=== PATIENT | female | born 1975 | race Caucasian/White ===

== ENCOUNTER 2017-10-18 11:55 | Emergency (ER) | payer BC, OTHER ==
[2017-10-18] MEDS ORDERED: METOCLOPRAMIDE 10 MG/2 ML VIAL IVP ONE (12:30)
[2017-10-18] MEDS ORDERED: methylPREDNISolone SOD SUCC 125 MG/2 ML VIAL IVP ONE (12:30)
[2017-10-18] MEDS ORDERED: KETOROLAC 30 MG/1 ML SDV IVP ONE (12:31)
--- NOTE | 2017-10-18 12:34 | EDPHY ---
H & P Stated Complaint: CP SOB Time Seen by Provider: 10/18/17 12:22 - Personal History LMP (Females 10-55): 15-21 Days Ago Current Tetanus/Diphtheria Vaccine: Unsure Current Tetanus Diphtheria and Acellular Pertussis (TDAP): Unsure - Medical/Surgical History Hx Asthma: No Hx Chronic Respiratory Disease: No Hx Diabetes: No Hx Cardiac Disease: No Hx Renal Disease: No Hx Cirrhosis: No Hx Alcoholism: No Hx HIV/AIDS: No Hx Splenectomy or Spleen Trauma: No Other PMH: occular migaines, ovarian cyst, - Social History Smoking Status: Never smoked Constitutional: Initial Vital Signs Temperature (C) 37.6 C 10/18/17 12:09 Heart Rate 88 10/18/17 12:09 Respiratory Rate 16 10/18/17 12:09 Blood Pressure 100/87 H 10/18/17 12:09 O2 Sat (%) 98 10/18/17 12:09 O2 Delivery Mode Room Air Allergies/Adverse Reactions: morphine Allergy (Verified 10/18/17 12:09) Penicillins Allergy (Verified 10/18/17 12:09) Sulfa (Sulfonamide Antibiotics) Allergy (Verified 10/18/17 12:09) Home Medications: Medication Instructions Recorded Zoloft 25mg (*) 10/18/17 Medical Decision Making ED Course/Re-evaluation: CHIEF COMPLAINT: Headache HISTORY OF PRESENT ILLNESS: 42-year-old female who has a history of ocular migraines. She has had some visual disturbances in the left eye followed by some numbness and tingling in the left upper extremity. She had similar symptoms in the past. She also has a significant headache with some nausea at this time. She denies any recent trauma. She denies any fevers or chills or any systemic illness. She denies any nausea vomiting. She says this feels exactly like her prior ocular migraines. REVIEW OF SYSTEMS: A 10 point review of systems was performed and is negative with the exception of the elements mentioned in the history of present illness. PHYSICAL EXAM: HR, BP, O2 Sat, RR. Temp noted General Appearance: Alert, well hydrated, appropriate, and non-toxic appearing. Head: Atraumatic without scalp tenderness or obvious injury Eyes: Pupils equal, round, reactive to light and accommodation, EOMI, no trauma , no injection. Ears: Clear bilaterally, no perforation, normal landmarks Nose: Atraumatic, no rhinorrhea, clear. Throat: There is no erythema or exudates, no lesions, normal tonsils, mucus membranes moist. Neck: Supple, 2+ carotid upstroke, nontender, no lymphadenopathy. Respiratory: No retractions, no distress, no wheezes, and no accessory muscle use. Lungs are clear to auscultation bilaterally. Cardiovascular: Regular rate and rhythm, no murmurs, rubs, or gallops. Bilateral carotid, radial, dorsalis pedis, and posterior tibial pulses intact. Good capillary refill all extremities. Gastrointestinal: Abdomen is soft, nontender, non-distended, no masses, no rebound, no guarding, no peritoneal signs. Musculoskeletal: Normal active ROM of all extremities, atraumatic. Neurological: Alert, appropriate, and interactive. The patient has normal DTRs and non-focal cranial nerves, motor, sensory, and cerebellar exam. Skin: No rashes, good turgor, no nodules on palpation. Past medical history: Ocular migraines Past surgical history: Noncontributory Family history: Noncontributory Social history: Uses alcohol probably on the heavier side, denies tobacco or drug use, employed, single. DIAGNOSTICS/PROCEDURES/CRITICAL CARE TIME: Not warranted DIFFERENTIAL DIAGNOSIS: The differential diagnosis for the patient's headache included but was not limited to ocular migraine, subarachnoid hemorrhage, migraine headache, tension headache and infectious causes such as meningitis, pharyngitis and sinusitis. MEDICAL DECISION MAKING: This patient has a fairly classic ocular migraine with some atypical symptoms are left upper extremity which she has had in the past. I am treating her with Reglan 10 mg, Solu-Medrol 125 mg, ketorolac 30 mg , and 25 mg of Benadryl. 1328: Reassessed patient, her headache has completely resolved after medication. Patient's symptoms are consistent with an ocular migraine. I have provided her a neurologist follow up. Return precautions provided; patient is comfortable with this plan. - Data Points Medications Given: Discontinued Medications Diphenhydramine HCl (Benadryl Injection) 25 mg IVP EDNOW ONE Stop: 10/18/17 12:32 Last Admin: 10/18/17 12:43 Dose: 25 mg Sodium Chloride (Ns) 1,000 mls @ 0 mls/hr IV ONCE ONE PRN Reason: Wide Open Stop: 10/18/17 12:43 Last Admin: 10/18/17 12:43 Dose: 1,000 mls Ketorolac Tromethamine (Toradol) 30 mg IVP EDNOW ONE Stop: 10/18/17 12:32 Last Admin: 10/18/17 12:43 Dose: 30 mg Methylprednisolone Sodium Succinate (Solu-Medrol) 125 mg IVP EDNOW ONE Stop: 10/18/17 12:31 Last Admin: 10/18/17 12:43 Dose: 125 mg Metoclopramide HCl (Reglan Injection) 10 mg IVP EDNOW ONE Stop: 10/18/17 12:31 Last Admin: 10/18/17 12:43 Dose: 10 mg Departure - Departure Disposition: Home, Routine, Self-Care Clinical Impression: Ocular migraine Condition: Good Instructions: Migraine Headache (ED), Acute Headache (ED), Ocular Migraine (ED) Additional Instructions: 1. Follow-up with your primary care physician within 72 hours. 2. Return to the emergency department immediately for recurrence of headache, nausea, vomiting, numbness, weakness, neck pain, fever or other concerns. 3. Use Tylenol and/or ibuprofen as directed. Referrals: Venus Salamanca MD [Primary Care Provider] - As per Instructions Chidi Kim DO [Medical Doctor] - As per Instructions
[2017-10-18] MEDS ORDERED: NS 1,000 ML IV ONE (12:42)
[2017-10-18 13:48] VITALS: BP 103/61
== END 2017-10-18 13:48 | disposition home or self-care (01) ==
DX: G43.809 Other migraine, not intractable, without status migrainosus (principal)
CPT/HCPCS: 96374; J1200; J1885; J2765; J2930

== ENCOUNTER 2017-11-03 11:11 | Emergency (ER) | payer BC ==
--- NOTE | 2017-11-03 11:23 | CPEKG ---
Heart Rate: 81 RR Interval: 741 P-R Interval: 160 QRSD Interval: 80 QT Interval: 384 QTC Interval: 446 P Mikana: 71 QRS Mikana: 47 T Wave Mikana: 35 EKG Severity - NORMAL ECG - EKG Impression: SINUS RHYTHM Electronically Signed By: Leeann Martinez 03-Nov-2017 14:38:15
--- NOTE | 2017-11-03 11:38 | EDPHY ---
H & P Stated Complaint: PALPITATIONS/L NECK PAIN Time Seen by Provider: 11/03/17 11:23 HPI/ROS: CHIEF COMPLAINT: Palpitations HISTORY OF PRESENT ILLNESS: 42-year-old female presents with palpitations. Onset of intermittent palpitations 6 months ago. The palpitations occur randomly and are associated with transient chest and neck discomfort. She is scheduled to see Cardiology tomorrow, but had increased palpitations over the past 48 hr. No shortness of breath or dizziness. Cardiac risk factors negative. Nonsmoker; no hypertension, diabetes or hypercholesterolemia. She is adopted; no heart disease on maternal side, paternal side unknown REVIEW OF SYSTEMS: complete 10 point ROS negative except at noted in the HPI - Personal History LMP (Females 10-55): 1-7 Days Ago Current Tetanus Diphtheria and Acellular Pertussis (TDAP): Unsure - Medical/Surgical History Hx Asthma: No Hx Chronic Respiratory Disease: No Hx Diabetes: No Hx Cardiac Disease: No Hx Renal Disease: No Hx Cirrhosis: No Hx Alcoholism: No Hx HIV/AIDS: No Hx Splenectomy or Spleen Trauma: No Other PMH: occular migaines, ovarian cyst, - Social History Smoking Status: Never smoked Constitutional: Initial Vital Signs Temperature (C) 36.8 C 11/03/17 11:13 Heart Rate 78 11/03/17 11:13 Respiratory Rate 18 11/03/17 11:13 Blood Pressure 122/71 H 11/03/17 11:13 O2 Sat (%) 97 11/03/17 11:13 O2 Delivery Mode Room Air Allergies/Adverse Reactions: morphine Allergy (Verified 11/03/17 11:12) Penicillins Allergy (Verified 11/03/17 11:12) Sulfa (Sulfonamide Antibiotics) Allergy (Verified 11/03/17 11:12) Home Medications: Medication Instructions Recorded Zoloft 25mg (*) 10/18/17 Medical Decision Making - Diagnostics EKG Interpretation: EKG interpreted by me reveals normal sinus rhythm, rate 81, no ST or T segment changes. Interpretation: Normal EKG Imaging Results: CXR: NAD Imaging: I viewed and interpreted images myself ED Course/Re-evaluation: This patient presents with symptomatic palpitations. Stat EKG result no evidence of ischemia or dysrhythmia. instrument lens grinder revealed normal sinus rhythm without ectopy throughout her emergency department stay. She was advised drink plenty of fluids and to avoid caffeine, alcohol and chocolate. She will follow up with Cardiology tomorrow. Differential Diagnosis: Differential diagnosis includes though it is not limited to pneumonia, pneumothorax, pulmonary embolism, aortic dissection, pericarditis, acute coronary syndrome. - Data Points Laboratory Results: Laboratory Results 11/03/17 11:25 11/03/17 11:25 Point of Care Test Results: Chemistry 11/03/17 12:35 POC Troponin I 0.02 ng/mL ng/mL (0.00-0.08) Departure - Departure Disposition: Home, Routine, Self-Care Clinical Impression: Palpitations Condition: Good Instructions: Heart Palpitations (ED) Additional Instructions: Your blood tests, EKG and chest Xray are normal today. We monitored your heart for over 1 hour and your heart remained in a normal rhythm. Keep your appointment with Cardiology tomorrow. Return with any concerns. Referrals: Venus Salamanca MD [Primary Care Provider] - As per Instructions
[2017-11-03 11:46] LABS: PLATELET COUNT 229 10^3/uL (150-400)
[2017-11-03 13:00] VITALS: BP 108/72
== END 2017-11-03 13:01 | disposition home or self-care (01) ==
DX: R00.2 Palpitations (principal)
CPT/HCPCS: 84484-PO

== ENCOUNTER 2018-02-12 01:09 | Emergency (ER) | payer BC ==
[2018-02-12 01:15] VITALS: BP 115/88
[2018-02-12] MEDS ORDERED: NS 1,000 ML IV ONE (01:22)
[2018-02-12] MEDS ORDERED: ONDANSETRON 4 MG/2 ML VIAL IVP ONE (01:22)
[2018-02-12] MEDS ORDERED: KETOROLAC 30 MG/1 ML SDV IVP ONE (01:22)
--- NOTE | 2018-02-12 01:26 | EDPHY ---
H & P Stated Complaint: Vomiting and lower abdominal cramps onset x 2 hours ago Time Seen by Provider: 02/12/18 01:23 HPI/ROS: HPI: This is a 42-year-old female who presents with Chief Complaint: Vomiting and lower abdominal cramps onset x 2 hours ago Location: Lower abdomen Quality: Chronic Duration: 2 hr Signs and Symptoms: no fever, + nausea, + vomiting, no hematemesis, no blood in stool, no abdominal bloating, no diarrhea, no back pain, no urinary symptoms, no vaginal discharge, no indigestion, no chest pain, no shortness of breath Timing: Acute Severity: 10 out Context: Patient reports that she had hamburgers for dinner this evening approximately 1 hr after eating dinner she started to developed lower abdominal cramps accompanied by nausea and 2 episodes of vomiting. She reports that she is not allowed to eat meat on the 2nd day of period. She reports that she needs IV fluids and IV ibuprofen. She is refusing laboratory studies and pelvic ultrasound. Patient has a history of ovarian cyst and endometriosis. Modifying Factors: Comment: ROS: A comprehensive 10 system review of systems is otherwise negative aside from elements mentioned in the history of present illness. MEDICAL/SURGICAL/SOCIAL HISTORY: Medical history: ocular migraines, ovarian cyst, endometriosis Surgical history: Denies Social history: Nonsmoker, . Family history noncontributory. CONSTITUTIONAL: Extremely nontoxic appearing middle-aged white female, at bedside, awake and alert, no obvious distress HEENT: Atraumatic and normocephalic, PERRL, EOMI. Nares patent; no rhinorrhea; no nasal mucosal edema. Tympanic membranes clear. Oropharynx clear, no exudate and moist pink mucosa. Airway patent. No lymphadenopathy. No meningismus. Cardiovascular: Normal S1/S2, regular rate, regular rhythm, without murmur rub or gallop. PULMONARY/CHEST: Symmetrical and nontender. Clear to auscultation bilaterally. Good air movement. No accessory muscle usage. ABDOMEN: Soft, nondistended, moderate lower abdominal tenderness, no rebound, + guarding, no peritoneal signs, no masses or organomegaly. No CVAT. PELVIC: Patient refused EXTREMITIES: 2/2 pulses, strength 5/5, no deformities, no clubbing, no cyanosis or edema. NEUROLOGICAL: no focal neuro deficits. GCS 15. SKIN: Warm and dry, no erythema. no rash. Good capillary refill. Source: Patient Exam Limitations: No limitations - Personal History Current Tetanus Diphtheria and Acellular Pertussis (TDAP): No - Medical/Surgical History Hx Asthma: No Hx Chronic Respiratory Disease: No Hx Diabetes: No Hx Cardiac Disease: No Hx Renal Disease: No Hx Cirrhosis: No Hx Alcoholism: No Hx HIV/AIDS: No Hx Splenectomy or Spleen Trauma: No Other PMH: occular migaines, ovarian cyst, endometreosis - Social History Smoking Status: Never smoked Constitutional: Initial Vital Signs Temperature (C) 37 C 02/12/18 01:13 Heart Rate 83 02/12/18 01:13 Respiratory Rate 16 02/12/18 01:13 Blood Pressure 115/88 H 02/12/18 01:13 O2 Sat (%) 98 02/12/18 01:13 O2 Delivery Mode Room Air Allergies/Adverse Reactions: morphine Allergy (Verified 11/03/17 11:12) Penicillins Allergy (Verified 11/03/17 11:12) Sulfa (Sulfonamide Antibiotics) Allergy (Verified 11/03/17 11:12) Home Medications: Medication Instructions Recorded Zoloft 25mg (*) 10/18/17 Ketorolac Tromethamine [Toradol 1 tab PO Q6 PRN 5 Days #12 tab 02/12/18 10mg tab] Promethazine HCl [Phenergan 25mg 25 mg PO Q6 PRN #10 tab 02/12/18 (*)] Medical Decision Making ED Course/Re-evaluation: Vital signs reviewed and stable upon arrival. No systemic signs. Again I recommended that patient obtain laboratory studies and pelvic ultrasound to evaluate for ovarian torsion versus ovarian cyst, she adamantly refuses along with pelvic exam. Given 1 L normal saline, IV Toradol, IV Zofran 0200: Reassessed patient reports moderate relief of symptoms. Passed p.o. Trial prior to discharge. Given a prescription for promethazine and Toradol. Patient advises that she has an outpatient follow up with her OBGYN for pelvic ultrasound in the next 1-2 weeks. This patient was seen under the supervision of my secondary supervising physician. I evaluated care for this patient independently. Discussed this patient with Dr. Mendoza. Differential Diagnosis: Abdominal pain in a female including but not limited to ovarian cyst, pelvic inflammatory disease, ovarian torsion, urinary tract infection, and appendicitis. - Data Points Medications Given: Discontinued Medications Sodium Chloride (Ns) 1,000 mls @ 0 mls/hr IV EDNOW ONE; Wide Open PRN Reason: Protocol Stop: 02/12/18 01:23 Last Admin: 02/12/18 01:33 Dose: 1,000 mls Ketorolac Tromethamine (Toradol) 30 mg IVP EDNOW ONE Stop: 02/12/18 01:23 Last Admin: 02/12/18 01:35 Dose: 30 mg Ondansetron HCl (Zofran) 4 mg IVP EDNOW ONE Stop: 02/12/18 01:23 Last Admin: 02/12/18 01:33 Dose: 4 mg Departure - Departure Disposition: Home, Routine, Self-Care Clinical Impression: Dysmenorrhea, Gastrointestinal intolerance to foods, Endometriosis Condition: Good Instructions: Endometriosis (ED) Additional Instructions: Consume a minimum of 8-10 glasses of water or electrolyte fluid replacement drinks that include Gatorade, Powerade, Pedialyte. Eat a bland diet for the next 48 hours and then slowly advance as tolerated. Take Zofran 1 tab every 4 hours as needed for nausea, vomiting. Take promethazine 1 tab every 6 hr as needed for nausea, vomiting not relieved by Zofran. Take Toradol every 6 hr as needed for moderate pain. Please keep follow-up appointment with OBGYN for pelvic ultrasound. Referrals: PCP Not In,Dictionary [Medical Doctor] - As per Instructions Prescriptions: Ketorolac Tromethamine [Toradol 10mg tab] 1 tab PO Q6 PRN 5 Days #12 tab PRN Reason: Pain, Moderate Promethazine HCl [Phenergan 25mg (*)] 25 mg PO Q6 PRN #10 tab PRN Reason: Nausea/Vomiting, Use 2nd
[2018-02-12] MEDS ORDERED: KETOROLAC 30 MG/1 ML SDV IM ONE (01:59)
== END 2018-02-12 02:25 | disposition home or self-care (01) ==
DX: N94.6 Dysmenorrhea, unspecified (principal); N80.9 Endometriosis, unspecified; R11.10 Vomiting, unspecified; E86.9 Volume depletion, unspecified
CPT/HCPCS: 96374; J1885; J2405

== ENCOUNTER 2018-04-14 15:09 | Emergency (ER) | payer BC ==
--- NOTE | 2018-04-14 15:52 | EDPHY ---
H & P Stated Complaint: 2 days of bilat flank pain. Time Seen by Provider: 04/14/18 15:52 HPI/ROS: HPI CHIEF COMPLAINT: Bilateral low back pain. HISTORY OF PRESENT ILLNESS: Very pleasant 42-year-old female, otherwise healthy , has been recently traveling. Recently traveled to [facility]. She arrived there on Wednesday. On Wednesday she knows some low back pain the pain is persisted. It has gotten worse. She travels back to [place] where she lives. She does endorse some chills. No vomiting, denies urinary symptoms including frequency, dysuria or foul smell or discoloration. Main complaint low back pain She distally thoughts what 1st. She does report that she developed some lower abdominal pain as well with this. However main complaint back pain. Past Medical History: History for depression, ovarian cyst Past Surgical History: Ovarian cyst surgery. Social History: Denies drugs alcohol tobacco. Family History: Noncontributory ROS REVIEW OF SYSTEMS: 10 Systems were reviewed and negative with the exception of the elements mentioned in the history of present illness. Exam Constitutional appears well nontoxic no acute distress, triage nursing summary reviewed, vital signs reviewed, awake/alert. Eyes normal conjunctivae and sclera, EOMI, PERRLA. HENT normal inspection, atraumatic, moist mucus membranes, no epistaxis, neck supple/ no meningismus, no raccoon eyes. Respiratory clear to auscultation bilaterally, normal breath sounds, no respiratory distress, no wheezing. Cardiovascular rate normal, regular rhythm, no murmur, no edema, distal pulses normal. Gastrointestinal soft, non-tender, no rebound, no guarding, normal bowel sounds, no distension, no pulsatile mass. Genitourinary mild CVA tenderness bilaterally.. Musculoskeletal no midline vertebral tenderness, full range of motion, no calf swelling, no tenderness of extremities, no meningismus, good pulses, neurovascularly intact. Skin pink, warm, & dry, no rash, skin atraumatic. Neurologic awake, alert and oriented x 3, AAOx3, moves all 4 extremities equally, motor intact, sensory intact, CN II-XII intact, normal cerebellar, normal vision, normal speech. Psychiatric normal mood/affect. Heme/Lymph/Immune no lymphadenopathy. Differential Diagnosis: Differential diagnosis includes but is not limited to and in no particular order: Bowel obstruction, appendicitis, gallbladder disease, diverticulitis, colitis, enteritis, perforated viscus, gastritis, GERD , esophagitis, urinary tract infection, pyelonephritis, kidney stones Medical Decision Making: Plan for this patient IV establishment IV fluid bolus 1 L normal saline, basic blood work, CBC, history, UA, urine test. Re -evaluate. Re-evaluation: 1728: I Did re-evaluate the patient. Patient resting calmly feeling better after IV fluids. Urinalysis results no evidence of infection. Electrolytes appropriate. Normal kidney function. Given her back pain and complains of some low abdominal pain will proceed with CT scan abdomen pelvis to rule out further causes of abdominal pain lower and back pain. Possible kidney stones, possible mass, possible appendicitis. 184: Patient re-evaluated she has received 2 L of fluid is feeling much better. She states her back discomfort has improved greatly. Here in emergency room she has no red flags. No fever, no saddle anesthesia, no referred pain, no leg weakness. No back trauma. Her pain was low back paravertebral mainly over CVA regions. Her urinalysis unremarkable for infection Patient's creatinine is normal. Patient CT scan abdomen pelvis does not show any kidney stones hydroureter or kidney inflammation. I discussed patient's test results with her. She feels comfortable being discharged home. Is possible this musculoskeletal back pain. I do recommend she follows up with her primary care doctor Return if worse. She is comfortable this plan. Source: Patient - Personal History LMP (Females 10-55): 1-7 Days Ago Current Tetanus Diphtheria and Acellular Pertussis (TDAP): Unsure - Medical/Surgical History Hx Asthma: No Hx Chronic Respiratory Disease: No Hx Diabetes: No Hx Cardiac Disease: No Hx Renal Disease: No Hx Cirrhosis: No Hx Alcoholism: No Hx HIV/AIDS: No Hx Splenectomy or Spleen Trauma: No Other PMH: occular migaines, ovarian cyst, endometreosis - Social History Smoking Status: Never smoked Constitutional: Initial Vital Signs Temperature (C) 37.2 C 04/14/18 15:14 Heart Rate 91 04/14/18 15:14 Respiratory Rate 16 04/14/18 15:14 Blood Pressure 103/69 04/14/18 15:14 O2 Sat (%) 96 04/14/18 15:14 O2 Delivery Mode Room Air Allergies/Adverse Reactions: morphine Allergy (Verified 11/03/17 11:12) Penicillins Allergy (Verified 11/03/17 11:12) Sulfa (Sulfonamide Antibiotics) Allergy (Verified 11/03/17 11:12) Home Medications: Medication Instructions Recorded Zoloft 25mg (*) 10/18/17 Medical Decision Making - Diagnostics Imaging Results: Imaging Impressions Abdomen CT 04/14/18 17:29 Impression: 1. Follicular cyst suspected associated with each ovary. Possible endometriomas cannot be excluded in this patient with history of endometriosis. 2. No CT evidence of abscess or bowel obstruction. 3. Fluid-filled loops of distal small bowel without distention. This can be seen with mild enteritis. Findings discussed with Joseph Mendoza MD at 18:19 hour, 04/14/2018. - Data Points Laboratory Results: Laboratory Results 04/14/18 16:18 04/14/18 16:18 04/14/18 04/14/18 04/14/18 16:18 16:18 15:55 WBC 8.49 10^3/uL 10^3/uL (3.80-9.50) RBC 4.31 10^6/uL 10^6/uL (4.18-5.33) Hgb 13.2 g/dL g/dL (12.6-16.3) Hct 38.4 % % (38.0-47.0) MCV 89.1 fL fL (81.5-99.8) MCH 30.6 pg pg (27.9-34.1) MCHC 34.4 g/dL g/dL (32.4-36.7) RDW 12.9 % % (11.5-15.2) Plt Count 251 10^3/uL 10^3/uL (150-400) MPV 9.8 fL fL (8.7-11.7) Neut % (Auto) 75.2 % H % (39.3-74.2) Lymph % (Auto) 20.0 % % (15.0-45.0) Wallace % (Auto) 3.8 % L % (4.5-13.0) Eos % (Auto) 0.4 % L % (0.6-7.6) Baso % (Auto) 0.4 % % (0.3-1.7) Nucleat RBC Rel Count 0.0 % % (0.0-0.2) Absolute Neuts (auto) 6.39 10^3/uL 10^3/uL (1.70-6.50) Absolute Lymphs (auto) 1.70 10^3/uL 10^3/uL (1.00-3.00) Absolute Monos (auto) 0.32 10^3/uL 10^3/uL (0.30-0.80) Absolute Eos (auto) 0.03 10^3/uL 10^3/uL (0.03-0.40) Absolute Basos (auto) 0.03 10^3/uL 10^3/uL (0.02-0.10) Absolute Nucleated RBC 0.00 10^3/uL 10^3/uL (0-0.01) Immature Gran % 0.2 % % (0.0-1.1) Immature Gran # 0.02 10^3/uL 10^3/uL (0.00-0.10) Sodium 137 mEq/L mEq/L (135-145) Potassium 3.6 mEq/L mEq/L (3.3-5.0) Chloride 99 mEq/L mEq/L (97-110) Carbon Dioxide 27 mEq/l mEq/l (22-31) Anion Gap 11 mEq/L mEq/L (6-14) BUN 14 mg/dL mg/dL (7-23) Creatinine 0.7 mg/dL mg/dL (0.6-1.0) Estimated GFR > 60 Glucose 86 mg/dL mg/dL (70-100) Calcium 10.1 mg/dL mg/dL (8.5-10.4) Urine Color YELLOW Urine Appearance HAZY Urine pH 6.0 (5.0-7.5) Ur Specific [place] 1.023 (1.002-1.030) Urine Protein NEGATIVE (NEGATIVE) Urine Ketones 1+ H (NEGATIVE) Urine Blood NEGATIVE (NEGATIVE) Urine Nitrate NEGATIVE (NEGATIVE) Urine Bilirubin NEGATIVE (NEGATIVE) Urine Urobilinogen NEGATIVE EU EU (0.2-1.0) Ur Leukocyte Esterase NEGATIVE (NEGATIVE) Urine Glucose NEGATIVE (NEGATIVE) Urine Test 04/14/18 15:55 WBC RBC Hgb Hct MCV MCH MCHC RDW Plt Count MPV Neut % (Auto) Lymph % (Auto) Wallace % (Auto) Eos % (Auto) Baso % (Auto) Nucleat RBC Rel Count Absolute Neuts (auto) Absolute Lymphs (auto) Absolute Monos (auto) Absolute Eos (auto) Absolute Basos (auto) Absolute Nucleated RBC Immature Gran % Immature Gran # Sodium Potassium Chloride Carbon Dioxide Anion Gap BUN Creatinine Estimated GFR Glucose Calcium Urine Color Urine Appearance Urine pH Ur Specific [place] Urine Protein Urine Ketones Urine Blood Urine Nitrate Urine Bilirubin Urine Urobilinogen Ur Leukocyte Esterase Urine Glucose Urine Test NEGATIVE Medications Given: Discontinued Medications Sodium Chloride (Ns) 1,000 mls @ 0 mls/hr IV EDNOW ONE; Wide Open PRN Reason: Protocol Stop: 04/14/18 16:01 Last Admin: 04/14/18 16:30 Dose: 1,000 mls Sodium Chloride (Ns) 1,000 mls @ 0 mls/hr IV ONCE ONE PRN Reason: Wide Open Stop: 04/14/18 17:30 Last Admin: 04/14/18 17:30 Dose: 1,000 mls Departure - Departure Disposition: Home, Routine, Self-Care Clinical Impression: Low back pain Qualifiers: Chronicity: acute Back pain laterality: unspecified Sciatica presence: without sciatica Qualified Code(s): M54.5 - Low back pain Condition: Good Instructions: Low Back Strain (ED) Additional Instructions: 1. Recommend rest. 2. Recommend alternating Tylenol and Motrin every 6-8 hours for pain control 3. Stay well-hydrated 4. Return emergency room if worsening pain questions or concerns. Referrals: Venus Salamanca MD [Primary Care Provider] - As per Instructions
[2018-04-14] MEDS ORDERED: NS 1,000 ML IV ONE ×2 (16:00→17:29)
[2018-04-14 16:34] LABS: PLATELET COUNT 251 10^3/uL (150-400)
[2018-04-14] MEDS ORDERED: IOPAMIDOL (ISOVUE-300) 100 ML BTL ONE (17:42)
[2018-04-14 19:06] VITALS: BP 113/83
== END 2018-04-14 19:06 | disposition home or self-care (01) ==
DX: M54.5 Low back pain (principal)
CPT/HCPCS: Q9967